=== PATIENT | female | born 1930 | race Caucasian/White ===

== ENCOUNTER 2016-12-14 22:57 | Emergency (ER) | payer MEDICARE, BC, OTHER ==
[2016-12-14] MEDS ORDERED: NORMAL SALINE 500 ML IV ONE (22:59)
[2016-12-14] MEDS ORDERED: ONDANSETRON HCL INJ/PF 4 MG/2 ML SDV IV ONE (23:00)
--- NOTE | 2016-12-14 23:03 | ER Document Report ---
ED General - General Stated Complaint: VOMITING Time Seen by Provider: 12/14/16 22:59 Notes: Patient is an 86-year-old female presents with complaint of vomiting that started approximately 1-2 hours after eating. She dinner at 630pm. 8. She denies any pain. No chest pain. No abdominal pain. Denies diarrhea. Only previous abdominal surgeries include appendectomy. She is not diabetic. She has no other complaints at this time. She does have a history of SVT. Blood she received 4 mg of Zofran as well as 10 mg of Reglan. Initially vomiting was resolved but now it has come back again. - Related Data Allergies/Adverse Reactions: Sulfa (Sulfonamide Antibiotics) Allergy (Verified 12/14/16 23:21) Past Medical History - Social History Smoking Status: Never Smoker Frequency of alcohol use: None Drug Abuse: None Family History: Reviewed & Not Pertinent Review of Systems - Review of Systems Notes: My Normal Review Basic REVIEW OF SYSTEMS: CONSTITUTIONAL : Denies fever, chills, or sweats. Denies recent illness. EENT: Denies eye, ear, throat, or mouth pain or symptoms. Denies nasal or sinus congestion. CARDIOVASCULAR: Denies chest pain. RESPIRATORY: Denies cough, cold, or chest congestion. Denies shortness of breath, difficulty breathing, or wheezing. GASTROINTESTINAL: Denies abdominal pain. Vomiting. GENITOURINARY: Denies difficulty urinating, painful urination, burning, frequency, or blood in urine. MUSCULOSKELETAL: Denies neck or back pain or joint pain or swelling. SKIN: Denies rash or skin lesions. NEUROLOGICAL: Denies altered mental status or loss of consciousness. Denies headache. Denies weakness or paralysis or loss of use of either side. Denies problems with gait or speech. Denies sensory or motor loss. ALL OTHER SYSTEMS REVIEWED AND NEGATIVE. Physical Exam - Vital signs Vitals: Temp Pulse Resp BP Pulse Ox 97.6 F 74 16 178/73 H 97 12/14/16 23:07 12/14/16 23:07 12/14/16 23:07 12/14/16 23:07 12/14/16 23:07 - Notes Notes: General Appearance: Well nourished, alert, cooperative, no acute distress, no obvious discomfort. Actively vomiting yellow stomach acid upon arrival to the ED. Vitals: reviewed, See vital signs table. Head: no swelling or tenderness to the head Eyes: PERRL, EOMI, Conjuctiva clear Mouth: No decreasd moisture Neck: Supple, no neck tenderness, No thyromegaly Lungs: No wheezing, No rales, No rhonci, No accessory muscle use, good air exchange bilaterally. Heart: Normal rate, Regular rythm, No murmur, no rub Abdomen: Normal BS, soft, No rigidity, No abdominal tenderness, No guarding, no rebound, no abdominal masses, no organomegaly Extremities: strength 5/5 in all extremities, good pulses in all extremities, no swelling or tenderness in the extremities, no edema. Skin: warm, dry, appropriate color, no rash Neuro: speech clear, oriented x 3, normal affect, responds appropriately to questions. Course - Re-evaluation Re-evalutation: 12/15/16 00:40 is at bedside now. Patient's vomiting is much improved and she looks improved. says that when this occurred she was having some dizziness and felt like things were spinning. Patient herself does not remember this. Patient denies any headache now or before. Because she is 86 years old with sudden onset of dizziness and vomiting I will obtain a CT scan of her head to make sure this is negative. 12/15/16 01:15 Exam shows no evidence of gallbladder. I did speak with the who says that even though the patient thought she still had her gallbladder that he says he remembers that it has been removed in the past. 12/15/16 02:02 gave me a little further information about the history. He says that the but also he cooked a frozen packet of season vegetables. He says that his has a hard time tolerating pepper in certain seasons. He thought that maybe the seizing on the vegetables would be mild however shortly after eating the vegetables she started having recurrent vomiting. Now she has [place] no vomiting. She never had any abdominal pain. Because of her age and vomiting I did obtain EKG and cardiac enzymes which are negative. I think cardiac disease as the source of her vomiting is unlikely being that she had no chest pain and she has a negative workup. I do not think she needs a CT scan at this time being that she had pain and currently has no vomiting and feels back to her normal baseline. Her vital signs are normal. I feel she is safe to be discharged home. I informed her and her that she should still have a very low threshold to return to the ER immediately if she has recurrent vomiting, any abdominal pain, any chest pain, or fevers. and patient agree with plan and she will be discharged home. Dictation of this chart was performed using voice recognition software; therefore, there may be some unintended grammatical errors. - Vital Signs Vital signs: Temp Pulse Resp BP Pulse Ox 97.6 F 74 20 161/87 H 98 12/14/16 23:07 12/14/16 23:07 12/15/16 01:00 12/15/16 00:01 12/15/16 01:00 - Laboratory Result Diagrams: 12/14/16 23:03 12/15/16 01:04 Laboratory results interpreted by me: 12/14/16 12/15/16 12/15/16 23:03 00:49 01:04 WBC 16.2 H Seg Neutrophils % 86.2 H Lymphocytes % 7.1 L Absolute Neutrophils 14.0 H BUN 21 H Est GFR ( Amer) 53 L Est GFR (Non-Af Amer) 44 L Glucose 142 H Creatine Kinase 138 H Urine Glucose (UA) 50 H Urine Ketones TRACE H - EKG Interpretation by Me Additional EKG results interpreted by me: 12/14/16 23:28 EKG is reviewed and interpreted by me. EKG shows normal sinus rhythm with a [address] segment elevation or depression. No ischemic T-wave inversions. IA interval, QRS duration are within normal range. QTc interval is prolonged. No old EKG available for comparison. Discharge - Discharge Clinical Impression: Vomiting Qualifiers: Vomiting type: unspecified Vomiting Intractability: non-intractable Nausea presence: with nausea Qualified Code(s): R11.2 - Nausea with vomiting, unspecified Condition: Good Disposition: HOME, SELF-CARE Additional Instructions: At this time your vomiting seems to be under better control. You have no abdominal pain on exam and your vomiting has stopped and therefore I do not think a CT scan is needed. We did perform an ultrasound which shows that you did indeed have your gallbladder removed in the past. We also performed blood work looking at your heart as well as an EKG. This was negative for any signs of a heart attack. At this time we will discharge you home. Please have a very low threshold to return to the ER if you have recurrent vomiting, fevers, any abdominal pain, any chest pain, or if you feel unwell. Please feel free to call [phone] if you have any further questions. That is a direct number to the emergency room. My name is Dr. Jefry Grigsby. Please follow-up with a physician in 2-3 days for reevaluation. We have given you 6 tablets of Zofran. You can take one of these every 4 hours as needed for nausea.
[2016-12-14] MEDS ORDERED: PROMETHAZINE HCL INJ 25 MG/1 ML VIAL IM ONE (23:28)
[2016-12-14 23:36] LABS: ABSOLUTE BASOPHILS # (AUTO) 0.1 10^3/uL (0.0-0.2); ABSOLUTE EOSINOPHILS # (AUTO) 0.1 10^3/uL (0.0-0.6); ABSOLUTE LYMPHOCYTES (AUTO) 1.1 10^3/uL (0.5-4.7); ABSOLUTE MONOCYTES (AUTO) 0.9 10^3/uL (0.1-1.4); BASOPHILS % (AUTO) 0.5 % (0-2); EOSINOPHILS % (AUTO) 0.3 % (0-6); HEMATOCRIT 44.6 % (36.0-47.0); HGB HCT DIFFERENCE 0.4; LYMPHOCYTES % (AUTO) 7.1 % (13-45); MEAN CORPUSCULAR HEMOGLOBIN 30.9 pg (27.0-33.4); MEAN CORPUSCULAR HGB CONC 33.7 g/dL (32.0-36.0); MEAN CORPUSCULAR VOLUME 92 fl (80-97); MONOCYTES % (AUTO) 5.9 % (3-13); RED BLOOD COUNT 4.86 10^6/uL (3.72-5.28); RED CELL DISTRIBUTION WIDTH 13.4 % (11.5-14.0); SEGMENTED NEUTROPHILS % (AUTO) 86.2 % (42-78); WHITE BLOOD COUNT 16.2 10^3/uL (4.0-10.5)
[2016-12-15 00:07] LABS: TROPONIN I < 0.012 ng/mL
--- NOTE | 2016-12-15 01:02 | RADIOLOGY REPORT (SQ) ---
EXAM DESCRIPTION: U/S ABDOMEN LTD W/DOPPLER COMPLETED DATE/TIME: 12/15/2016 12:44 am REASON FOR STUDY: RUQ US. intactable vomiting, leukocytosis COMPARISON: None. TECHNIQUE: Dynamic and static grayscale images acquired of the abdomen and recorded on PACS. Additio nal selected color Doppler and spectral images recorded. LIMITATIONS: None. FINDINGS: PANCREAS: No masses. Visualized pancreatic duct normal caliber. LIVER: No suspicious masses. Moderate hepatic steatosis. 1.8 cm likely benign cyst of the left hepa tic lobe. LIVER VASCULATURE: Normal directional flow of the main portal vein and hepatic veins. GALLBLADDER: Not identified. ULTRASOUND-DETECTED SANTAMARIA'S SIGN: Not applicable. INTRAHEPATIC DUCTS AND COMMON DUCT: 0.3 cm diameter CBD and intrahepatic ducts normal caliber. No zandra ling defects. INFERIOR VENA CAVA: Normal flow. AORTA: No aneurysm. RIGHT KIDNEY: Normal size. Normal echogenicity. No solid or suspicious masses. No hydronephrosis. No calcifications. PERITONEAL AND RIGHT PLEURAL SPACE: No ascites or effusions. OTHER: No other significant findings. IMPRESSION: No acute findings. Gallbladder is not identified/surgically removed. TECHNICAL DOCUMENTATION: JOB ID: [id number] [employer]- All Rights Reserved
[2016-12-15 01:12] LABS: BILIRUBIN,URINE NEGATIVE (NEGATIVE); GLUCOSE, URINE 50 mg/dL (NEGATIVE); KETONES,URINE TRACE mg/dL (NEGATIVE); LEUKOCYTE ESTERASE,URINE NEGATIVE (NEGATIVE); NITRITE,URINE NEGATIVE (NEGATIVE); PROTEIN,URINE NEGATIVE (NEGATIVE); URINE SPECIFIC GRAVITY 1.008; UROBILINOGEN,URINE NEGATIVE mg/dL (<2.0)
[2016-12-15 01:16] LABS: APPEARANCE,URINE CLEAR
[2016-12-15 01:43] LABS: ALBUMIN 3.9 g/dL (3.5-5.0); ANION GAP 13 (5-19); CARBON DIOXIDE 25 mmol/L (22-30); CHLORIDE 104 mmol/L (98-107); GLUCOSE 142 mg/dL (75-110); POTASSIUM 4.2 mmol/L (3.6-5.0); SODIUM 142.2 mmol/L (137-145); TOTAL PROTEIN 6.8 g/dL (6.3-8.2)
[2016-12-15 01:44] LABS: ALANINE AMINOTRANSFERASE 27 U/L (9-52); ALKALINE PHOSPHATASE 74 U/L (38-126); ASPARTATE AMINO TRANSFERASE 29 U/L (14-36); BILIRUBIN,DIRECT 0.3 mg/dL (0.0-0.4); BILIRUBIN,TOTAL 0.7 mg/dL (0.2-1.3); BLOOD UREA NITROGEN 21 mg/dL (7-20); CALCIUM 9.2 mg/dL (8.4-10.2); CREATINE KINASE 138 U/L (30-135); CREATININE RESULT 1.18 mg/dL (0.52-1.25)
--- NOTE | 2016-12-15 01:44 | RADIOLOGY REPORT (SQ) ---
EXAM DESCRIPTION: CT HEAD WITHOUT COMPLETED DATE/TIME: 12/15/2016 1:31 am REASON FOR STUDY: dizziness, vomiting COMPARISON: None. TECHNIQUE: Axial images acquired through the brain without intravenous contrast. Images reviewed wi th bone, brain and subdural windows. Images stored on PACS. All CT scanners at this facility use dose modulation, iterative reconstruction, and/or weight based d osing when appropriate to reduce radiation dose to as low as reasonably achievable (ALARA). [facility]: Dose Right [facility]: CareDose [facility]: Dose Right [facility]: Teradose 4D [facility]: [employer] RADIATION DOSE: Up-to-date CT equipment and radiation dose reduction techniques were employed. CTDIv ol: 64.6 mGy. DLP: 1163 mGy-cm. mGy. LIMITATIONS: None. FINDINGS: VENTRICLES: Normal size and contour. CEREBRUM: No masses. No hemorrhage. No midline shift. No evidence for acute infarction. Moderate c erebral volume loss and [id number] confluent white matter microangiopathy pattern, left more th an right. 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 CEREBELLUM: No masses. No hemorrhage. No alteration of density. No evidence for acute infarction. EXTRAAXIAL SPACES: No fluid collections. No masses. Atherosclerosis. ORBITS AND GLOBE: No intra- or extraconal masses. Normal contour of globe without masses. CALVARIUM: No fracture. PARANASAL SINUSES: 1.6 cm left maxillary retention cyst -mucocele. SOFT TISSUES: No mass or hematoma. OTHER: No other significant finding. IMPRESSION: No acute findings. Moderate asymmetric white matter microangiopathy pattern; cannot exc lude other white matter processes. Recommend comparison with older exams or MRI correlation. EVIDENCE OF ACUTE STROKE: NO. COMMENT: Quality ID # [id number]: Final reports with documentation of one or more dose reduction techniques (e.g., Automated exposure control, adjustment of the mA and/or kV according to patient size, use of iterative reconstruction technique) TECHNICAL DOCUMENTATION: JOB ID: [id number] [employer]- All Rights Reserved
[2016-12-15] MEDS ORDERED: ONDANSETRON ODT 4 MG TAB (6 TAB/DSPK) PO PRN (01:58)
[2016-12-15 02:10] VITALS: BP 136/75
--- NOTE | 2016-12-15 09:42 | EKG REPORT ---
SEVERITY:- ABNORMAL ECG - SINUS RHYTHM FIRST DEGREE AV BLOCK BORDERLINE PROLONGED QT INTERVAL : Confirmed by: Dale Dominguez 15-Dec-2016 09:41:23
== END 2016-12-15 02:20 | disposition home or self-care (01) ==
LOC: ER 22:57
DX: R11.2 Nausea with vomiting, unspecified (principal); R42 Dizziness and giddiness; Z90.49 Acquired absence of other specified parts of digestive tract; Z88.2 Allergy status to sulfonamides; Z86.79 Personal history of other diseases of the circulatory system
CPT/HCPCS: 93005; 99284; 96372; 96374; 36415; 82553; 82550; 83690; 85025; 80053; 81001; 84484; 76705; 93976; 70450; 93010; J2550; J2405; J7040; A9270

== ENCOUNTER → 2017-05-19 | Outpatient (CLI) | payer MEDICARE, BC, OTHER ==
[2017-05-19 16:22] LABS: ABSOLUTE EOSINOPHILS # (AUTO) 0.1 10^3/uL (0.0-0.6); ABSOLUTE LYMPHOCYTES (AUTO) 0.9 10^3/uL (0.5-4.7); ABSOLUTE MONOCYTES (AUTO) 0.6 10^3/uL (0.1-1.4); ABSOLUTE NEUT (AUTO) 6.7 10^3/uL (1.7-8.2); BASOPHILS % (AUTO) 0.4 % (0-2); EOSINOPHILS % (AUTO) 1.1 % (0-6); HEMATOCRIT 45.4 % (36.0-47.0); HEMOGLOBIN 15.3 g/dL (12.0-15.5); LYMPHOCYTES % (AUTO) 11.2 % (13-45); MEAN CORPUSCULAR HEMOGLOBIN 30.7 pg (27.0-33.4); MEAN CORPUSCULAR HGB CONC 33.6 g/dL (32.0-36.0); MEAN CORPUSCULAR VOLUME 91 fl (80-97); MONOCYTES % (AUTO) 7.1 % (3-13); PLATELET COUNT 261 10^3/uL (150-450); RED BLOOD COUNT 4.97 10^6/uL (3.72-5.28); RED CELL DISTRIBUTION WIDTH 13.2 % (11.5-14.0); SEGMENTED NEUTROPHILS % (AUTO) 80.2 % (42-78); TOTAL CELLS COUNTED % (AUTO) 100 %; WHITE BLOOD COUNT 8.4 10^3/uL (4.0-10.5)
[2017-05-19 17:00] LABS: ERYTHROCYTE SEDIMENTATION RATE 14 mm/hr (0-30)
== END ==
LOC: OD 15:17
PROVIDERS: ATTEND Internal Medicine
DX: H34.231 Retinal artery branch occlusion, right eye (principal)
CPT/HCPCS: 36415; 85025; 85652; 86140